=== PATIENT | female | born 1950 | race Caucasian/White ===

== ENCOUNTER 2018-04-26 08:20 | Inpatient (IN) | payer MEDICARE ==
[2018-04-15 09:08] LABS: ABSOLUTE BASOPHILS 0.1 thou/uL (0.0-0.2); ABSOLUTE EOSINOPHILS 0.3 thou/uL (0.0-0.7); ABSOLUTE LYMPHOCYTES 2.5 thou/uL (0.8-5.3); ABSOLUTE MONOCYTES 0.5 thou/uL (0.0-1.2); ABSOLUTE NEUTROPHILS 3.2 thou/uL (1.6-8.1); BASOPHILS 0.9 %; EOSINOPHILS 4.3 %; HEMATOCRIT 41.7 % (37.0-47.0); HEMOGLOBIN 13.9 gm/dL (12.0-15.0); LYMPHOCYTES 38.5 %; MCH 29.8 pg (26.0-34.0); MCHC 33.3 g/dL (28.0-37.0); MCV 89.4 fL (80.0-100.0); MONOCYTES 7.3 %; MPV 9.3 fl. (7.2-11.1); NUCLEATED RBCS 0 /100WBC; PLATELET COUNT* 243 thou/uL (150-400); RBC 4.66 mil/uL (4.20-5.00); RDW-CV 14.4 % (10.5-14.5); WBC 6.6 thou/uL (4.0-11.0)
[2018-04-15 09:18] LABS: ALBUMIN 3.6 g/dL (3.4-5.0); CALCIUM 8.4 mg/dL (8.5-10.1); CREATININE 1.3 mg/dL (0.6-1.3); POTASSIUM 3.1 mmol/L (3.5-5.1); TOTAL BILIRUBIN 0.3 mg/dL (<0.1-1.0); TOTAL PROTEIN 6.7 g/dL (6.4-8.2)
[2018-04-15 09:30] LABS: APTT 26.6 Seconds (25.0-31.3); INR 1.1; PROTIME 10.4 Seconds (9.20-11.50)
[2018-04-15 10:05] LABS: ESR (SEDRATE) 15 mm/hr (0-30)
--- NOTE | 2018-04-15 15:18 | EKG ---
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1950 Requested By: Carlos Webber Order Number: [id number] Reading MD: Juve Almanzar Measurements Intervals [place]ach[place] Rate: 73 P: 17 AL: 168 QRS: 0 QRSD: 97 T: 13 QT: 408 QTc: 450 Interpretive Statements Sinus rhythm Borderline T abnormalities, inferior leads Compared to ECG 11/12/2006 10:00:45 Atrial premature complex(es) no longer present Ventricular premature complex(es) no longer present T-wave abnormality still present Electronically Signed On 04-15-2018 15:18:27 CDT by Juve Almanzar [email or web address] <ELECTRONICALLY SIGNED> By: Juve Almanzar MD, FACC 04/15/18 1518 5 5 Juve Almanzar MD, [facility] /EPI
[2018-04-16 02:07] LABS: GLYCOHEMOGLOBIN (HGB A1C) 5.2 % (4.8-5.6)
[~2018-04-26] VITALS: Ht 157.5 cm; Wt 113.4 kg
[~2018-04-26 08:20] MED LIST: AMBIEN 5 MG TABL5 M1 PO; CARVEDILOL25 MG PO; DEXILANT60 MG PO; ELMIRON PO; FROVA2.5 MG PO; HYDROXYCHLOROQ200 M1 PO; LEVOTHROID88 MCG PO; LEVOXYL137 MCG PO; LEXAPRO 10 MG T10 MG PO; LEXAPRO20 MG PO; MAXALT MLT10 MG PO; MENEST0.625 MG PO; MOBIC15 MG PO; NORTRIPTYLINE H50 MG PO; PERCOCET 5-3251 EACH PO; PROTONIX 20 MG20 M1 PO; RELPAX40 MG PO; SIMVASTATIN40 MG PO; TOPIRAMATE 100100 MG PO; TRIAMTERENE-HC1 EAC3 PO; VICODIN 5-5001 EACH PO; WELLBUTRIN XL300 MG PO; XANAX XR0.5 MG PO; ZOFRAN4 MG PO
[2018-04-26 09:45] VITALS: BP 165/83
[2018-04-26 13:13] VITALS: BP 108/60
[2018-04-26 16:00] VITALS: BP 113/67
--- NOTE | 2018-04-26 18:27 | NUR ---
PT ARRIVED TO FLOOR AT 1313. PT SLEEPING/DROWSY UPON ARRIVAL TO UNIT. MEPILEX DRESSING ON RIGHT KNEE DRY AND INTACT. PT WEARING BILAT THIGH HIGH JOSE J HOSE. POLAR CARE IN PLACE. IV LEFT HAND PATENT. OXYGEN AT 3L/NC. VS STABLE. FAMILY AT BEDSIDE AND CALL LIGHT WITHIN REACH.
--- NOTE | 2018-04-26 18:35 | NUR ---
PT ALERT AND ORIENTED X 4. PAIN BEING MANAGED BY IV AND PO PAIN MEDICATION. DENIES NAUSEA. ABLE TO VOID USING BEDPAN. OXYGEN AT 3L/NC. IVF INFUSING WITHOUT DIFFICULTY. MEPILEX DRESSING DRY/INTACT. THIGH HIGH JOSE J HOSE IN PLACE. POLAR PACK IN PLACE. VS STABLE. HOURLY ROUNDS MAINTAINED. CALL LIGHT WITHIN PATIENT REACH. NURSING WILL CONTINUE TO MONITOR.
[2018-04-26 20:00] VITALS: BP 115/69
[2018-04-27] VITALS: BP 145/76
[2018-04-27 03:58] LABS: HEMATOCRIT 38.4 % (37.0-47.0); HEMOGLOBIN 12.5 gm/dL (12.0-15.0)
[2018-04-27 04:18] VITALS: BP 137/61
--- NOTE | 2018-04-27 04:34 | NUR ---
PATIENT SLEPT WELL DURING THIS SHIFT. PT WITH RESPIRATIONS OF 20 WHILE AWAKE HOWEVER RESPIRATIONS CAN DROP TO 5-9 WHILE ASLEEP. PT WOULD ASK FOR PAIN MEDICATION WHEN WOKE FOR LABS, VITALS, RT CHECK, ETC BUT WOULD RETURN TO SLEEP IMMEDIATELY. PT CALLED FOR BEDPAN AT APPROX 0230 AND YELLING AT STAFF FOR NOT GIVING HER PAIN MEDS WHILE SLEEPING THAT SHE WANTS IT AROUND THE CLOCK. EXPLAINED TO PT ABOUT LOW RESPIRATIONS AND PRN PAIN MEDS WERE NOT GIVEN UNLESS CALLED FOR. PT GIVEN DILUADID 2MG IV. PT REFUSING TO TURN HOWEVER ATTEMPTED TO TURN TO RT SIDE BUT WAS UNABLE TO DO THIS. PT REFUSING ASSISTANCE. PT BACK TO SLEEP SHORTLY AFTER NURSE LEFT THE ROOM. VITALS WNL AND RESPIRATIONS BETWEEN 12-20. FREQUENTLY USED ITEMS AND CALL LIGHT WITHIN REACH. SIDERAILS UPX4 AND BED ALARM ON. WILL CONTINUE TO MONITOR.
[2018-04-27 07:45] VITALS: BP 133/63
--- NOTE | 2018-04-27 09:09 | NUR ---
RECIEVED O.T. EVAL AND TX ORDERS. WILL DEFER TO P.T. AND NURSING AT THIS TIME. PLEASE ORDER FURTHER O.T. SERVICES IF NEEDED.
--- NOTE | 2018-04-27 12:24 | NUR ---
SPOKE WITH PT. AND MARIE SHARMA. PT.LIVES AT HOME WITH HER . 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 HE WEIGHS OVER 400 LBS AND IS BASICALLY BED BOUND. SHE SAID SHE THINKS THAT IS HOW SHE HURT HER KNEE. THIER SON MINERVA IS STAYING WITH HIM WHILE SHE IS HERE. HE WILL BE STAYING WITH THEM UNTIL PT.IS FULLY RECOVERED. MARIE WILL ALSO BE STAYING ABOUT 6 WEEKS WITH THEM. PT.HAS BEEN USING A BARIATRIC WALKER OF HER HUSBANDS,SINCE HE DOES NOT USE IT ANY LONGER. SHE SAID THEY HAVE ALOT OF DME AT HOME-, ELMARGIE SCOOTER, BSC, SHOWER BENCH. PT.PLANS TO STAY ON MAIN FLOOR. SHE HAS A RECLINER, SHE CAN SLEEP IN, THAT IS REALLY COMFORTABLE. THEY HAVE A RAMP ENTRY TO THE HOUSE. SHE WOULD LIKE TO USE [facility] FOR HH P.T. DISCUSSED CPM AND POLAR PACK. CM WILL FOLLOW.
[2018-04-27 12:30] VITALS: BP 137/61
[2018-04-27 16:52] VITALS: BP 123/57
--- NOTE | 2018-04-27 18:11 | NUR ---
PT ALERT AND ORIENTED X 4. PAIN HAS BEEN MANAGED WITH PO AND IV MEDICATION. IV PATENT AND SL. PT HAS ADEQUATE O2 SAT ON RA @ 96% UP WITH ASSIST X 1 WITH WALKER AND GAIT BELT. THERAPY IN MORNING AND AFTERNOON. CPM IN USE 0-65 ONCE THIS SHIFT. POLAR PACK IN PLACE. THIGH HIGH JOSE J HOSE IN PLACE. VS STABLE. HOURLY ROUNDS MAINTAINED. CALL LIGHT WITHIN REACH. NURSING WILL CONTINUE TO MONITOR.
[2018-04-27 20:00] VITALS: BP 123/57
[2018-04-28 05:17] LABS: HEMATOCRIT 33.4 % (37.0-47.0); HEMOGLOBIN 11.1 gm/dL (12.0-15.0)
--- NOTE | 2018-04-28 05:47 | NUR ---
PATIENT SLEPT WELL DURING THIS SHIFT. PT REFUSED CPM MACHINE LAST NIGHT C/O KNEE WAS IN TOO MUCH PAIN. EXPLAINED TO PT THAT KEEPING KNEE MOVING WOULD NOT ONLY PREVENT BLOOD CLOTS BUT AID IN RANGE OF MOTION AND TO EASE PAIN. PT UP TO BSC TO VOID, REFUSING TO AMBULATE TO BATHROOM. PT GIVEN OXYCODONE 10MG THROUGH THE NIGHT FOR PAIN. VITALS AND SATS WNL. PT IS ON ROOM AIR. IV IN LT HAND PATENT. FREQUENTLY USED ITEMS AND CALL LIGHT WITHIN REACH. SIDERAILS UPX3 AND BED ALARM ON. WILL CONTINUE TO MONITOR.
[2018-04-28 07:55] VITALS: BP 124/69
[2018-04-28 16:00] VITALS: BP 103/61
--- NOTE | 2018-04-28 19:23 | NUR ---
PATIENT RESTING IN BED. PATIENT IS UP MINIMAL ASSIST WITH GAIT BELT AND WALKER. PATIENT HAS BEEN UP BY SELF, PATIENT EDUCATED ON NOT GETTING UP WITHOUT ASSIST BUT HAS CONTINUED TO GET UP INDEPENDENTLY. BED AND CHAIR ALARMS ARE ON. PATIENT WORKED WITH THERAPY TODAY. PATIENT REFUSED CPM THIS AFTERNOON. PAIN CONTROLLED WITH OXYCODONE. PATIENT HAS POLAR CARE TO RIGHT KNEE. PATIENT DENIES ANY NEEDS AT THIS TIME. CALL LIGHT WITHIN REACH. WILL CONTINUE TO MONITOR.
[2018-04-28 20:15] VITALS: BP 114/54
[2018-04-29 00:45] VITALS: BP 120/65
[2018-04-29 03:54] LABS: HEMATOCRIT 32.8 % (37.0-47.0); MCHC 33.5 g/dL (28.0-37.0); MCV 89.5 fL (80.0-100.0); MPV 8.6 fl. (7.2-11.1); RBC 3.66 mil/uL (4.20-5.00); RDW-CV 13.8 % (10.5-14.5); WBC 8.8 thou/uL (4.0-11.0)
[2018-04-29 03:58] VITALS: BP 102/56
[2018-04-29 04:08] LABS: CALCIUM 7.7 mg/dL (8.5-10.1); CREATININE 0.8 mg/dL (0.6-1.3); MAGNESIUM 1.6 mg/dL (1.8-2.4); POTASSIUM 3.3 mmol/L (3.5-5.1)
--- NOTE | 2018-04-29 06:38 | NUR ---
PT SLEPT OFF AND ON OVERNIGHT. USING CPM AT HS FOR ONLY AN HOUR THEN REQUESTING IT TO BE REMOVED. CO CONTINUED R KNEE PAIN. LHAND SL IV. RECEIVING 2 OXY IR SEVERAL TIMES OVERNIGHT FOR CO PAIN AND THEN BACK TO SLEEP. AM LABS DRAWN. REFUSING TO TURN WITH STAFF OVERNIGHT, ABLE TO MOVE ABOUT IN BED INDEP BUT NOT TURNING SIDE TO SIDE, EDUCATION GIVEN. VSS. JOSE J BHAKTA. DRSG CDI TO R KNEE. ANTICIPATING DISCHARGE HOME TODAY. NO BM YET SHE STATES BUT "GAS RUMBLING". ABLE TO USE CALL LITE AND MAKE NEEDS KNOWN. BED ALARM ON OVERNIGHT FOR SAFETY.
[2018-04-29 07:50] VITALS: BP 119/72
[2018-04-29] MEDS ORDERED: COLACE 100 MG100 MG PO (09:14)
[2018-04-29] MEDS ORDERED: LIDOPATCH1 EACH TOP (09:14)
[2018-04-29] MEDS ORDERED: CELEBREX 200 M200 M1 PO (09:14)
[2018-04-29] MEDS ORDERED: HYDROCODON-ACE1 EAC7 PO (09:14)
[2018-04-29] MEDS ORDERED: ELIQUIS5 MG PO (09:14)
[2018-04-29] MEDS ORDERED: OXYCODONE HCL 55 MG PO (09:14)
--- NOTE | 2018-04-29 10:32 | NUR ---
CM CALLED IN ELIQUIS PRESCRIPTION , WRITTEN, TO PT.S PHARMACY- [facility] IN [place]. WILL CALL BACK IN ONE HR.FOR COPAY.
[2018-04-29] MEDS ORDERED: NORCO 5-325 TA1 EACH PO (11:53)
[2018-04-29 12:25] VITALS: BP 137/61
--- NOTE | 2018-04-29 15:44 | NUR ---
PATIENT DISCHARGED TO HOME WITH HOME HEALTH. DISCHAREG PAPERS REVIEWED AND SIGNED. PRESCRIPTIONS AND INFORMATION SHEETS GIVEN. IV REMOVED. BELONGINGS PACKED. PATIENT SENT WITH CPM AND WALKER. PATIENT AND GRANDDAUGHTER DENY ANY FURTHER NEEDS. PATIENT TAKEN BY WHEELCHAIR TO EXIT. LEFT WITH GRANDDAUGHTER.
--- NOTE | 2018-05-03 12:15 | OP ---
[address] [address] OPERATIVE REPORT Name: MARIELOS CHESTER Room: [address]#: [id number] Admission: 04/26/18 Attend Phys: Rosa Forbes Discharge: 04/29/18 Date of : 54 Report #: [id number] THIS REPORT FOR: //name// CC: Og Tavares DATE OF SERVICE: 04/26/2018 PREOPERATIVE DIAGNOSIS: Right knee degenerative joint disease. POSTOPERATIVE DIAGNOSIS: Right knee degenerative joint disease. PROCEDURE: Right total knee arthroplasty. SURGEON: Carlos Webber DO. PROFESSIONAL VOLLEYBALL PLAYER: Ulysses Vazquez DO. ESTIMATED BLOOD LOSS: 100 mL. COMPLICATIONS: None. DRAINS: None. SPECIMEN REMOVED: None. ANTIBIOTICS: Ancef 2 grams IV preoperatively. TOURNIQUET TIME: Approximately 49 minutes. ORTHOPEDIC IMPLANTS: Pino total knee arthroplasty system: 1. Size 7 narrow cruciate-retaining femur. 2. Size E tibial baseplate. 3. A 12-mm polyethylene spacer, medial congruent. 4. A 32-mm patella. 5. Two bags of Palacos bone cement with gentamicin. CONDITION OF THE PATIENT: Stable to PACU. ANESTHESIA: General. INDICATIONS: This is a pleasant 67-year-old female seen in my clinic regarding right knee pain she has had for quite some time. She unfortunately failed conservative treatment including anti-inflammatory medications and steroid injections. She had degenerative joint disease seen on x-rays. Due to failed [facility] [address] [place] [address] OPERATIVE REPORT Name: MARIELOS CHESTER Dejuan Room: [address] IN [facility]#: [id number] Admission: 04/26/18 Attend Phys: Rosa Forbes Discharge: 04/29/18 Date of : 54 Report #: [id number] conservative treatment, I discussed right total knee arthroplasty. I discussed procedure, risks, benefits, complications and indications in detail with her. Risks discussed include but not limited to infection, neurovascular injury, continued or worsening pain, hardware failure, fracture, need for further surgery, arthrofibrosis, DVT, PE and anesthesia complications. She did express understanding and wished to proceed with surgery. DESCRIPTION OF PROCEDURE: After consent was obtained, the patient was taken to the operative suite and placed supine position on the operating room table. She was given benefit of general anesthesia. A well-padded tourniquet was placed on the right upper thigh. Right leg was sterilely prepped and draped in the usual fashion. Preop timeout was obtained to confirm the correct patient, procedure and operative site. Surgery began with standard anterior knee midline incision. Sharp dissection was taken down to the level of the capsule. Please note the tourniquet was inflated to 300 mmHg prior to incision. A new knife was used and a medial parapatellar arthrotomy was performed. She had normal-appearing joint effusion. Patella was everted. She had an eburnated bone throughout all 3 compartments with osteophytes throughout. At this time, a femoral drill was used to open the femoral canal. T-handle and intramedullary laura were placed, measuring 5-degree valgus cut. Hohmann retractors were placed all times to protect collateral ligaments. Distal femoral cut was made to the captured block. Attention was then turned to the tibia. External tibial guide was utilized. A 10 mm cut was measured off the high lateral side and the proximal tibial cut was made to the captured block. The knee was taken through extension, 10 block was used to ensure adequate resection. The knee was again flexed. AP sizer was placed, measuring a size 7. The 4-in-1 cutting block was then pinned in place and 2 navy fighter pilot holes were drilled in approximately 3 degrees of external rotation. The distal femur measured size 7. Two navy fighter pilot holes were drilled in 3 degrees external rotation. The size 4-in-1 cutting block was then pinned in place and the anterior and posterior condylar cuts as well as chamfer cuts were then made. Posterior osteophytes were removed with curved osteotome and rongeur. Attention was then turned to the tibia. External tibial guide was utilized. This measured size E. The size E tibial trial was pinned in place in appropriate rotation utilizing drop laura. Trial femur was placed and a size 10 spacer was placed. Knee was taken through range of motion. She had full flexion and extension with good balancing. The patella was everted. Posterior patellar cut was made using freehand technique, this measured size 32. Three peg holes were drilled, size 32 button was placed. The knee was taken through range of motion. The patella did track well. At this time, trial femur and spacer were removed. The proximal tibia was opened with a drill and punch. All trial components were removed. The knee was thoroughly irrigated with pulsatile lavage and dried with a clean lap sponge. [address] [address] OPERATIVE REPORT Name: MARIELOS CHESTER Room: [address] [place] [facility]#: [id number] Admission: 04/26/18 Attend Phys: Rosa Forbes Discharge: 04/29/18 Date of : 54 Report #: [id number] Final components were opened, cement was mixed, placed on the exposed bone and final components. These were then packed into place. Excess cement was removed. A size 12 spacer was placed. Knee was taken through extension. Axial compression was applied until the cement hardened. Once the cement hardened, trial reduction was performed and a final size 12 spacer was chosen. This was placed on a clean tibial tray locked in place. Audible click was heard. Knee was taken through final range of motion. She had full flexion/extension with stable varus and valgus testing and equal flexion and extension gaps and good patellar tracking. Tourniquet was let to deflate at 49 minutes. Hemostasis achieved with electrocautery and direct pressure. The knee was again thoroughly irrigated. Ortho cocktail was injected posteriorly. The capsular tissue was closed with #1 Vicryl in a [id number]-sj-sbqqr fashion. PRP was injected into the capsule. Knee was again thoroughly irrigated. Subcutaneous tissue closed with 2-0 Vicryl in interrupted fashion, followed by running Stratafix suture on the skin. This covered with Dermabond, was allowed to dry, Mepilex silver dressing, 4 x 4s, and Raymond bandage. She did tolerate the procedure well without complication. She was taken to the recovery room in stable condition. All needle and sponge counts correct x 2 at the end of the procedure. She will be admitted postoperatively for pain and control, physical therapy. I expect at least 2 midnight stay. She has to take care of her at home and does not want to go to a facility. I expect she will be discharged roughly . Appropriate postoperative analgesia and DVT prophylaxis in the form of Eliquis 2.5 mg p.o. b.i.d. as well as CPM machine. <ELECTRONICALLY SIGNED> By: Carlos Webber DO 05/03/18 1215 1201 [id number] Webber DO /nt
== END 2018-04-29 15:40 | disposition home health service (06) | DRG 470 ==
LOC: M.SUR 08:20 → EDSTATUS 09:46 → M.SUR 09:52 → M.ORTHSURG 12:16
PROVIDERS: Internal Medicine; Orthopaedic Surgery; ADMIT Internal Medicine
PROC: 0SRC0J9 Replacement of Right Knee Joint with Synthetic Substitute, Cemented, Open Approach (ICD-10-PCS; principal; 2018-04-26)
DX: M17.11 Unilateral primary osteoarthritis, right knee (principal); Z68.42 Body mass index [BMI] 45.0-49.9, adult; M35.00 Sjogren syndrome, unspecified; I10 Essential (primary) hypertension; E78.5 Hyperlipidemia, unspecified; K21.9 Gastro-esophageal reflux disease without esophagitis; G89.29 Other chronic pain; E66.9 Obesity, unspecified; F41.9 Anxiety disorder, unspecified; Z88.6 Allergy status to analgesic agent; Z88.1 Allergy status to other antibiotic agents; Z82.49 Family history of ischemic heart disease and other diseases of the circulatory system; Z80.0 Family history of malignant neoplasm of digestive organs; Z81.1 Family history of alcohol abuse and dependence; Z79.899 Other long term (current) drug therapy

== ENCOUNTER → 2019-04-14 | Outpatient (CLI) | payer MEDICARE ==
[~2019-04-14] MED LIST changes: +CELEBREX 200 M200 M1 PO; +COLACE 100 MG100 MG PO; +ELIQUIS5 MG PO; +FLEXERIL PO; +HYDROCODON-ACE1 EAC7 PO; +LIDOPATCH1 EACH TOP; +NORCO 5-325 TA1 EACH PO; +OXYCODONE HCL 55 MG PO; +WELLBUTRIN 75 M75 M1 PO
--- NOTE | ~2019-04-14 | PAINCON ---
[address] [address] PAIN MANAGEMENT CONSULTATION Name: CHESTERMARIELOS ANGELICA Room: [facility] Tran#: [id number] Admission: 04/14/19 Attend Phys: Frieda Fernandez MD Discharge: Date of : 54 Report #: [id number] THIS REPORT FOR: //name// CC: Carlos Fernandez DATE OF SERVICE: 04/14/2019 CHIEF COMPLAINT: "Low back pain with pain down into my leg." HISTORY: The patient is a 68-year-old female who has been referred to the pain clinic for evaluation of chronic back pain. The patient has denied any history of injury. She was . Her used to be a police booking officer. He suffered a stroke in 2002. 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 He weighed about 400 pounds. 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 She was told in 2002 that she had had a herniated disk. She has had some problems with headaches. She underwent a series of shots in the past. She did note some benefit from the shots. First set of injections was in 2013. She has seen a chiropractor in the past. She has gained about 50 pounds since that time. She has had some problem with her left leg involving the left iliotibial band. This left side of her leg feels bruised. She has pain that continues to be problematic when she stands for more than 15 minutes. After standing for 15 minutes, she then must sit down for about 5-10 minutes. Her pain then subsides. She has been able to readdress the task while standing. Her pain then returns after about 15 minutes. She continues to work in that fashion. She has been told that she has spinal stenosis. She would like to undergo treatment. She felt that the epidural injections were helpful and would like to try a series of injections at this juncture to help with her pain control. ALLERGIES: TYLENOL WITH CODEINE, VANCOMYCIN, FLOXIN. CURRENT MEDICATIONS: Hydrocodone 7.5 mg one p.o. q.6 hours p.r.n., nortriptyline 75 mg, Flexeril 5 mg t.i.d., Xanax XR 0.5 mg for anxiety, Wellbutrin 75 mg, 150 mg, levothyroxine 0.137 mg, nortriptyline to improve mood; Protonix 20 mg, reflux, heartburn; Zocor 40 mg, topiramate 100 mg for seizures b.i.d., triamterene/hydrochlorothiazide 75/50, Ambien 5 mg. PAST MEDICAL HISTORY: 1. Multiple autoimmune conditions lupus, Sjogren's, fibromyalgia, thyroid, possibly rheumatoid arthritis. 2. Hypertension. 3. GERD. 4. Elevated lipids, elevated cholesterol. 5. Emotional problems. 6. [place] [address] PAIN MANAGEMENT CONSULTATION Name: MARIELOS CHESTER Room: [facility] Tran#: [id number] Admission: 04/14/19 Attend Phys: Frieda Fernandez MD Discharge: Date of : 54 Report #: [id number] PAST SURGICAL HISTORY: 1. Tonsillectomy in 1966, total knee replacement in 2018. 2. Hysterectomy, bladder surgery in 1995. SOCIAL HISTORY: She is retired. REVIEW OF SYSTEMS: Fatigue, weakness, headaches, eye disease, wears glasses, blurred vision, glaucoma/cataracts, sore mouth, shortness of breath with walking, change in bowel movements, painful bowel movements, constipation, frequent urination, joint pain, joint stiffness, muscle weakness, muscle pain, cramps, back pain, difficulty walking, rash/itching, numbness/tingling, memory loss, nervousness, depression, insomnia, slow to heal, bleeding tendencies. LABORATORY DATA: MRI of the spine dated 10/11/2018: 1. L3-L4, minimal bulging annuli are present. Bilateral facet arthropathy and limited flavum thickening is present. No significant canal narrowing is present. Nzmh-fw-dqkjlvhl left neural foraminal narrowing is present. Thecal sac 1.1 cm AP. 2. L4-L5. Mild diffuse disk bulge is present. Bilateral facet arthropathy and ligamentum flavum thickening is present. There is mild effacement of the thecal sac. Awir-zh-ixrcijom bilateral neural foraminal narrowing present. Thecal sac 0.9 cm AP. 3. L5-S1 mild diffuse disk bulge. Bilateral facet arthropathy and ligamentum flavum thickening present. No significant canal narrowing. Mild bilateral neural foramen narrowing is present. Thecal sac 1.2 cm AP. PAIN CLINIC ASSESSMENT AND PQRS: 1. Height 5 feet 2 inches, weight 255 pounds, BMI is 46.6. 2. VITAL SIGNS: Blood pressure 142/77, pulse 74, respiratory rate is 16, room air saturation is 98%, temperature 98.5. 3. Pain intensity, 7/10. 4. Fall history: The patient has not fallen in the last 3 months. 5. Blood thinner. The patient is not on a blood thinning medication. 6. Hypertension. The patient is being treated for hypertension. 7. Opioids greater than 6 weeks. The patient is on an opioid regimen. 8. Risk assessment tool, low for opioid use. 9. Functional assessment tool. 10. Recreational drug use. The patient denies. 11. Tobacco: The patient denies use of tobacco. 12. Alcohol: The patient denies use of alcoholic beverages. PHYSICAL EXAMINATION: GENERAL: The patient is a well-developed, well-nourished, somewhat obese white female. Appears her stated age. She is alert and oriented x 3. Her affect is appropriate. Speech is fluent. HEENT: Normocephalic, atraumatic. Extraocular eye [place] [address] PAIN MANAGEMENT CONSULTATION Name: CHESTERMARIELOS ANGELICA Room: [facility]#: [id number] Admission: 04/14/19 Attend Phys: Frieda Fernandez MD Discharge: Date of : 54 Report #: [id number] nonicteric. Mucous membranes are moist. The patient is missing two of the lower teeth. States that is secondary to the dry mouth, which she is chronically experiencing secondary to Sjogren's disease. NECK: Without adenopathy or JVD. HEART: Regular rate. ABDOMEN: Protuberant. MUSCULOSKELETAL: Upper extremity muscle strength judged to be 5/5 for the major muscle groups in the upper extremity. Deep tendon reflexes are trace at the biceps bilaterally and absent brachioradialis and triceps. The patient has pain and discomfort in the low back area. Complains of pain and discomfort that is radiating down in the L4 dermatomal distribution. The patient has some sensory changes in the L4-L5 dermatomal distribution. IMPRESSION: 1. Lumbar radiculopathy, L4-L5 dermatomal distribution. 2. Multiple autoimmune conditions lupus, Sjogren's, fibromyalgia, thyroid, possibly rheumatoid arthritis. 3. Hypertension. 4. Gastroesophageal reflux disease. 5. Elevated lipids, elevated cholesterol. 6. Emotional problems. 7. Stomach problems. RECOMMENDATIONS: We discussed treatment options with the patient. Risks and benefits of an epidural steroid injection were discussed. Possible complications of the procedure, which could include but are not limited to infection, worsening of pain, no improvement in pain, increased pain and the patient elects to proceed. PROCEDURE NOTE: The patient was taken to the procedure area. She was then assisted in getting on the examination table. Her back was sterilely prepped with a Betadine solution at the L5-S1 and L4 area. This area was sterilely prepped and the iodine was allowed to dry. A 25-gauge needle was then used to numb the skin. A 17-gauge Tuohy with loss of resistance technique was used to gain access to the epidural space. She tolerated the procedure well. There were no complications. She remained in the Pain Clinic for an appropriate amount of time. Total of 22 seconds fluoroscopy time was used. We would like to thank you for letting us participate in her care. We hope she continues to improve. By: [id number]. Rupert Fernandez MD /GUICHO
== END | disposition home or self-care (01) ==
LOC: M.PC 07:00
DX: M54.16 Radiculopathy, lumbar region (principal); G89.29 Other chronic pain; I10 Essential (primary) hypertension; K21.9 Gastro-esophageal reflux disease without esophagitis; E78.00 Pure hypercholesterolemia, unspecified; E78.5 Hyperlipidemia, unspecified; F41.9 Anxiety disorder, unspecified; F32.9 Major depressive disorder, single episode, unspecified; M79.7 Fibromyalgia; Z98.890 Other specified postprocedural states; Z79.899 Other long term (current) drug therapy; Z90.710 Acquired absence of both cervix and uterus; Z88.8 Allergy status to other drugs, medicaments and biological substances

== ENCOUNTER → 2019-05-12 | Outpatient (CLI) | payer MEDICARE ==
--- NOTE | 2019-05-16 11:25 | PAINCON ---
[address] [address] PAIN MANAGEMENT CONSULTATION Name: MARIELOS CHESTER ANGELICA Room: [facility] MAURA Hercules.#: [id number] Admission: 05/12/19 Attend Phys: Frieda Fernandez MD Discharge: Date of : 54 Report #: [id number] THIS REPORT FOR: //name// CC: Carlos Magana DATE OF SERVICE: 05/12/2019 CHIEF COMPLAINT: "Pain in my leg is still there." HISTORY: The patient is a 68-year-old female who has been seen in the Pain Clinic because of pain with prolonged standing. The patient notes the pain radiates down into her leg. It radiates down into the buttocks on both sides. The patient has difficulty cleaning the kitchen. Standing while cooking is problematic. Doing dishes is problematic as well. Standing and combing her hair or brushing teeth in the bathroom is problematic and notes increased pain in the back. After sitting down for about 2 minutes, she notes an improvement in her pain. She has difficulty going out and shopping. When she does, she leans forward on the cart. Prolonged standing in the line can be quite problematic. Notes pain builds up in the lower portion of her back down into the buttocks and radiates down the posterior portion of her legs. She sleeps in a recliner. Does have some pain in her knee. She feels that she continues to be flexible. Continues to do as stretching exercises. She has Sjogren disease and as a result causes dry mouth and is having some problems with her gums and teeth. She has tried CBD oil. She has undergone injections in her knees. She feels that she may have significantly aggravated her back by taking care of her over the last 6 years. She was pretty much house down. She weighed 400 pounds. She unfortunately in 01/2019. The patient at this juncture, feels like she should concentrate on her own health and is putting a lot of emphasis there. ALLERGIES: TYLENOL WITH CODEINE, VANCOMYCIN, FLOXIN. CURRENT MEDICATIONS: Hydrocodone 7.5 mg one p.o. 4-6 hours, nortriptyline 75 mg, Flexeril 5 mg t.i.d., Xanax XR 0.5 mg for anxiety, Wellbutrin 75 mg, 150 mg daily, levothyroxine, 0.137 mg, nortriptyline to improve mood, Protonix 20 mg, reflux, heartburn, Zocor 40 mg, topiramate 100 mg for seizures b.i.d., triamterene/hydrochlorothiazide 75/50, Ambien 5 mg. PAIN CLINIC ASSESSMENT/PQRS: 1. Height 5 feet 2 inches, weight 255 pounds, BMI is 46.6. 2. Vital Signs: Blood pressure 128/76, heart rate 85, respiratory rate 16, room air saturation 98%. 3. Temperature 98. 4. Pain intensity, 6/10. [place] [address] PAIN MANAGEMENT CONSULTATION Name: MARIELOS CHESTER Room: [facility] Tran#: [id number] Admission: 05/12/19 Attend Phys: Frieda Fernandez MD Discharge: Date of : 54 Report #: [id number] 5. Fall history: The patient has not fallen in the last 3 months. 6. Blood thinner. The patient is not on a blood thinning medication. 7. Hypertension. The patient is being treated for hypertension. 8. Opioids greater than 6 weeks. The patient receives medication from one source. 9. Risk assessment tool, low for opioid use. 10. Functional assessment tool. 11. Recreational drug use. The patient denies. 12. Tobacco: The patient denies use of tobacco. 13. Alcohol. The patient denies use of alcoholic beverages. PHYSICAL EXAMINATION: GENERAL: The patient is a well-developed, well-nourished white female. She is obese. Appears her stated age. She is alert and oriented x 3. Her affect is appropriate. Speech is fluent. HEENT: Normocephalic, atraumatic. Extraocular eye muscles intact. Sclerae nonicteric. Mucous membranes are dry and the patient is drinking or sipping water during the interview. Some lower teeth are missing. NECK: Without adenopathy or JVD. HEART: Regular rate. ABDOMEN: Protuberant. MUSCULOSKELETAL: The patient with muscle strength of 5/5 for the major muscle groups in the upper extremity. Deep tendon reflexes are trace bilaterally at the biceps. The patient has some discomfort in the lower portion of her back. Complains of pain and discomfort, which continues to build after prolonged standing with radiation down to the buttocks areas bilaterally. The patient notes improvement in the pain and discomfort after sitting for about 2-3 minutes. IMPRESSION: 1. Lumbar radiculopathy, L4-L5 dermatomal distribution with history of spinal stenosis. 2. Multiple autoimmune conditions, which include lupus, Sjogren's, fibromyalgia, thyroid, possible rheumatoid arthritis. 3. Hypertension. 4. Gastroesophageal reflux disease. 5. Elevated lipids. 6. Elevated cholesterol. 7. Emotional problems. 8. Stomach problems. RECOMMENDATIONS: We discussed treatment options with the patient. Risks and benefits of an epidural steroid injection were again reviewed. They include but are not limited to infection, worsening pain, no improvement in pain and [place] [address] PAIN MANAGEMENT CONSULTATION Name: MARIELOS CHESTER ANGELICA Room: [facility]#: [id number] Admission: 05/12/19 Attend Phys: Frieda Fernandez MD Discharge: Date of : 54 Report #: [id number] PROCEDURE NOTE: The patient was taken to the procedure area. She was then assisted in getting on the examination table. Her back was sterilely prepped with a Betadine solution. A 0.25% bupivacaine was infiltrated at the L4-L5 interspace. A midline approach was undertaken. A 17-gauge Tuohy with loss of resistance technique was used to gain access to the epidural space. There was no CSF, heme or paresthesia. Total of 80 mg Depo-Medrol, 40 mg triamcinolone and 2 mL of 0.25% bupivacaine was injected. The patient tolerated the procedure well. A script for physical therapy has been provided. The patient will undergo physical therapy with hopes of improving her pain and receiving more information regarding appropriate exercises for spinal stenosis and lumbar radiculopathy. <ELECTRONICALLY SIGNED> By: Frieda Fernandez MD 05/16/19 1125 [id number]. Rupert Fernandez MD /nt
== END | disposition home or self-care (01) ==
LOC: M.PC 05:12
DX: M54.16 Radiculopathy, lumbar region (principal); M48.061 Spinal stenosis, lumbar region without neurogenic claudication; M79.7 Fibromyalgia; I10 Essential (primary) hypertension; E78.00 Pure hypercholesterolemia, unspecified; E78.5 Hyperlipidemia, unspecified; E07.9 Disorder of thyroid, unspecified; K21.9 Gastro-esophageal reflux disease without esophagitis; Z98.890 Other specified postprocedural states; Z79.899 Other long term (current) drug therapy; Z88.8 Allergy status to other drugs, medicaments and biological substances; Z79.891 Long term (current) use of opiate analgesic

== ENCOUNTER → 2019-08-03 | Outpatient (CLI) | payer MEDICARE ==
[~2019-08-03] MED LIST changes: +AZITHROMYCIN500 MG PO; +CEFDINIR300 MG PO; +PREDNISONE 10 M10 MG PO; +REXULTI1 MG PO; +TAMIFLU75 MG PO; +VENTOLIN HFA 1818 GM INH
== END ==
LOC: M.LAB 05:30
DX: E87.6 Hypokalemia (principal)

== ENCOUNTER → 2019-08-18 | Outpatient (CLI) | payer MEDICARE ==
[~2019-08-18] MED LIST changes: +HYDROCODON-ACE1 EAC8 PO; +REXULTI0.25 MG PO
--- NOTE | 2019-08-24 13:30 | PAINCON ---
[address] [address] PAIN MANAGEMENT CONSULTATION Name: MARIELOS CHESTER ANGELICA Room: [facility] Marc#: [id number] Admission: 08/18/19 Attend Phys: Frieda Fernandez MD Discharge: Date of : 54 Report #: [id number] THIS REPORT FOR: //name// CC: Og Magana DATE OF SERVICE: 08/18/2019 CHIEF COMPLAINT: "Still having pain in the left back and down into the left hip. HISTORY: The patient is a 68-year-old female who has been seen in the pain clinic because of pain in the left leg in the posterior area. She notes that her pain continues to be problematic. She does walk with a rolling walker. Pain radiates down into her leg. It involves her buttocks on both sides. She does have some difficulty with activities of daily living because of this pain. She has been hospitalized at [facility] for influenza B in 05/2019. She has been followed by her bundle person. Scheduled to see them again on 09/05/2019. As you may recall, she suffers from Sjogren's disease and fibromyalgia. There is some question as to whether or not she has involvement of her lungs. She still has some dry eyes. She is having problems with her lower jaw. Her teeth may need to be extracted. She has returned today for another epidural steroid injection to help control the pain. She rates her pain as a 7/10. She does use CBD oil to help with her pain. She has undergone injections in her knees in the past. She has spent a lot of time caring for her . ALLERGIES: TYLENOL WITH CODEINE, VANCOMYCIN, AND FLOXIN. CURRENT MEDICATIONS: Hydrocodone 7.5 mg one p.o. every 4 - 6 hours, nortriptyline 75 mg, Flexeril 5 mg t.i.d., Zanaflex XR 0.5 mg for anxiety, Wellbutrin 150 mg daily, levothyroxine 0.137 mg, nortriptyline to improve mood, Protonix 20 mg, reflux and heartburn; Zocor 40 mg, Topamax 100 mg for seizures b.i.d., triamterene/hydrochlorothiazide 75/50 mg and Ambien 5 mg. PAIN CLINIC ASSESSMENT AND PQRS: 1. Height 5 feet 2 inches, weight 259 pounds, BMI is 47. 2. Vital Signs: Blood pressure 141/86, heart rate 88, respiratory rate 18, room air saturation is 98%. 3. Pain intensity 7/10. 4. Fall history: The patient has not fallen since we saw her last. 5. Blood thinner. The patient is not on a blood thinning medication. 6. Hypertension. The patient is being treated for hypertension. 7. Opioids greater than 6 weeks. The [place] [address] PAIN MANAGEMENT CONSULTATION Name: CHESTERMARIELOS ANGELICA Room: [facility] Marc#: [id number] Admission: 08/18/19 Attend Phys: Frieda Fernandez MD Discharge: Date of : 54 Report #: [id number] source. 8. Risk assessment tool, low for opioid use. 9. Functional assessment tool has been reviewed. 10. Recreational drug use: The patient denies. 11. Tobacco: The patient denies. 12. Alcohol. The patient denies significant alcohol intake. PHYSICAL EXAMINATION: GENERAL: The patient is a well-developed, well-nourished white female. Appears her stated age. She is alert and oriented x 3. Her affect is appropriate. Speech is fluent. HEENT: Normocephalic, atraumatic. Extraocular eye muscles intact. The patient does complain of some dryness in her eyes. Has a dry mouth. Notes failure of her dental hygiene and the lower jaw area because of lack of saliva. We will discontinue considering having some teeth extracted. NECK: Without adenopathy or JVD. HEART: Regular rate. ABDOMEN: Protuberant. Bowel sounds present. MUSCULOSKELETAL: Upper extremity muscle strength 5-/5 for the major muscle groups in the upper extremity. Lower extremities; the patient has pain and discomfort in lower portion of her back in the L4-L5 dermatomal distribution. Complains of pain that radiates down in the lower portion of her back and buttocks bilaterally. IMPRESSION: 1. Lumbar radiculopathy at L4-L5 dermatomal distribution with history of spinal stenosis. 2. Multiple autoimmune conditions, which include lupus, Sjogren's, fibromyalgia, thyroid disease, and questionable rheumatoid arthritis. 3. Hypertension. 4. Gastroesophageal reflux disease. 5. Elevated lipids. 6. Elevated cholesterol. 7. Emotional problems. 8. Stomach problems. RECOMMENDATIONS: We discussed treatment options with the patient. Risks and benefits of an epidural steroid injection were again reviewed. Possible complications of the procedure, which could include but are not limited to infection, worsening pain, no improvement in pain, nerve damage, and spinal headache were reviewed and the patient elects to proceed. PROCEDURE NOTE: The patient was taken to the procedure area. She was then assisted in getting on examination table. Her back was sterilely prepped with a Betadine solution. A 0.25% bupivacaine was infiltrated at the L4-L5 interspace. Fluoroscopy using anterior and posterior view were used [place] [address] PAIN MANAGEMENT CONSULTATION Name: MARIELOS CHESTER Room: [facility]..#: [id number] Admission: 08/18/19 Attend Phys: Frieda Fernandez MD Discharge: Date of : 54 Report #: [id number] At the L4-L5 interspace, a 17-gauge Tuohy with loss of resistance technique was used to gain access to the epidural space. There was no CSF, heme or paresthesia. Total of 80 mg Depo-Medrol, 40 mg triamcinolone, and 2 mL of 0.25% bupivacaine was injected. The patient tolerated the procedure well. There were no complications. Her pain decreased to 0 at the time of discharge. A 26 seconds fluoroscopy time was used. The patient will follow up in the future as needed. We would like to thank you for letting us participate in her care. We hope she continues to improve. <ELECTRONICALLY SIGNED> By: Frieda Fernandez MD 08/24/19 1330 1403 1459N. Rupert Fernandez MD /nt
== END ==
LOC: M.PC 05:23
DX: M54.16 Radiculopathy, lumbar region (principal); M79.7 Fibromyalgia; I10 Essential (primary) hypertension; E78.5 Hyperlipidemia, unspecified; E78.00 Pure hypercholesterolemia, unspecified; E07.9 Disorder of thyroid, unspecified; M32.9 Systemic lupus erythematosus, unspecified; K21.9 Gastro-esophageal reflux disease without esophagitis; Z98.890 Other specified postprocedural states; Z79.899 Other long term (current) drug therapy; Z88.8 Allergy status to other drugs, medicaments and biological substances; Z79.891 Long term (current) use of opiate analgesic

== ENCOUNTER 2020-07-12 18:20 | Emergency (ER) | payer MEDICARE ==
[~2020-07-12] VITALS: Ht 157.5 cm; Wt 116.1 kg
[2020-07-12 22:58] VITALS: BP 148/89
== END 2020-07-12 23:00 | disposition left against medical advice (07) ==
LOC: M.ERS 18:20
DX: S86.911A Strain of unspecified muscle(s) and tendon(s) at lower leg level, right leg, initial encounter (principal); M79.7 Fibromyalgia; Z79.899 Other long term (current) drug therapy; Z88.6 Allergy status to analgesic agent; Z88.1 Allergy status to other antibiotic agents; Z90.710 Acquired absence of both cervix and uterus; W18.39XA Other fall on same level, initial encounter; Y93.89 Activity, other specified; Y92.89 Other specified places as the place of occurrence of the external cause; Y99.8 Other external cause status

== ENCOUNTER → 2021-07-30 | Outpatient (CLI) | payer MEDICARE ==
[~2021-07-30] MED LIST changes: +HEARTBURN RELIE20 MG PO; +NORTRIPTYLINE H50 M3 PO; -NORTRIPTYLINE H50 MG PO; +SINGULAIR 10 MG10 MG PO; -WELLBUTRIN 75 M75 M1 PO; +WELLBUTRIN SR150 MG PO
== END | disposition home or self-care (01) ==
LOC: M.PC 08:55
PROVIDERS: ATTEND Anesthesiology Pain Medicine
DX: M54.16 Radiculopathy, lumbar region (principal); G89.29 Other chronic pain; I10 Essential (primary) hypertension; E78.00 Pure hypercholesterolemia, unspecified; M79.7 Fibromyalgia; K21.9 Gastro-esophageal reflux disease without esophagitis; Z98.890 Other specified postprocedural states; Z79.899 Other long term (current) drug therapy; Z90.710 Acquired absence of both cervix and uterus; Z88.8 Allergy status to other drugs, medicaments and biological substances; Z88.6 Allergy status to analgesic agent

== ENCOUNTER → 2021-09-27 | Outpatient (CLI) | payer MEDICARE ==
[2021-09-27 12:30] LABS: ABSOLUTE BASOPHILS 0.1 thou/uL (0.0-0.2); ABSOLUTE EOSINOPHILS 0.1 thou/uL (0.0-0.7); ABSOLUTE MONOCYTES 0.5 thou/uL (0.0-1.2); ABSOLUTE NEUTROPHILS 4.6 thou/uL (1.6-8.1); BASOPHILS 0.9 %; EOSINOPHILS 1.8 %; HEMOGLOBIN 13.6 gm/dL (12.0-15.0); LYMPHOCYTES 27.5 %; MCH 28.8 pg (26.0-34.0); MCHC 33.2 g/dL (28.0-37.0); MCV 86.6 fL (80.0-100.0); MONOCYTES 6.4 %; MPV 7.8 fl. (7.2-11.1); NUCLEATED RBCS 0 /100WBC; PLATELET COUNT* 256 thou/uL (150-400); POLYS 63.4 %; RBC 4.74 mil/uL (4.20-5.00); WBC 7.3 thou/uL (4.0-11.0)
[2021-09-27 12:58] LABS: ALBUMIN 3.2 g/dL (3.4-5.0); CALCIUM 8.6 mg/dL (8.5-10.1); CREATININE 0.9 mg/dL (0.6-1.3); POTASSIUM 3.6 mmol/L (3.5-5.1); TOTAL BILIRUBIN 0.5 mg/dL (<0.1-1.0); TOTAL PROTEIN 6.9 g/dL (6.4-8.2)
== END ==
LOC: M.LAB 09-25 13:36 → M.CT 14:00
PROVIDERS: ATTEND Nurse Practitioner Adult Health
DX: K57.90 Diverticulosis of intestine, part unspecified, without perforation or abscess without bleeding (principal); R19.4 Change in bowel habit; R10.32 Left lower quadrant pain; Z80.0 Family history of malignant neoplasm of digestive organs